=== PATIENT | female | born 1945 | race Caucasian/White ===

== ENCOUNTER 2019-10-30 20:15 | Emergency (ER) | payer MEDICARE, BC ==
[2019-10-30] MEDS ORDERED: Lidocaine 1% 20 ML MDV ONE (20:40)
[2019-10-30] MEDS ORDERED: Bacitracin/Neomycin/Polymyxin B Oint 0.9 GM U/D Packet ONE (20:40)
[2019-10-30] MEDS ORDERED: Diphtheria,Pertussis(Acell),Tetanus Vaccine 0.5 ML SDV IM ONE (21:07)
--- NOTE | 2019-10-30 21:13 | EDM.PDOC ---
ED HPI GENERAL MEDICAL PROBLEM - General Chief Complaint: Laceration Stated Complaint: fall Time Seen by Provider: 10/30/19 21:07 Source of Information: Reports: Patient History Limitations: Reports: No Limitations - History of Present Illness INITIAL COMMENTS - FREE TEXT/NARRATIVE: Patient is a 74-year-old female who presents to the emergency department via private vehicle this evening with a complaint of laceration to face. Patient states that she tripped over the lawnmower in her garage and struck face on furniture. Patient sustained lacerations to upper and lower lip. Patient denies dizziness prior to or loss of consciousness following incident. Patient denies neck pain, shortness of breath, chest pain, headache, blurry vision, nausea or vomiting. Onset: Today, Sudden Duration: Minutes: Location: Reports: Face Quality: Reports: Ache Severity: Mild Improves with: Reports: None Worsens with: Reports: None Context: Reports: Trauma Associated Symptoms: Reports: No Other Symptoms - Related Data Allergies Allergy/AdvReac Type Severity Reaction Status Date / Time moexipril HCl [From Univasc] Allergy Mild Cough Verified 10/30/19 20:31 Home Meds: Home Meds Alendronate Sodium [Alendronate] 70 mg PO ASDIRECTED 04/24/13 [History] Metoprolol Tartrate 25 mg PO DAILY 04/24/13 [History] Brimonidine Tartrate [Brimonidine Tartrate 0.2% Ophth Soln] 1 drop EYEBOTH BID 10/30/19 [History] levETIRAcetam [Keppra] 1,500 mg PO DAILY 10/30/19 [History] Social & Family History - Living Situation & Occupation Living situation: Reports: Occupation: Retired ED ROS GENERAL - Review of Systems Review Of Systems: Comprehensive ROS is negative, except as noted in HPI. Constitutional: Reports: No Symptoms HEENT: Reports: No Symptoms Respiratory: Reports: No Symptoms Cardiovascular: Reports: No Symptoms Endocrine: Reports: No Symptoms GI/Abdominal: Reports: No Symptoms : Reports: No Symptoms Musculoskeletal: Reports: No Symptoms Skin: Reports: Wound (Lacerations to upper and lower lip) Neurological: Reports: No Symptoms Psychiatric: Reports: No Symptoms Hematologic/Lymphatic: Reports: No Symptoms Immunologic: Reports: No Symptoms ED EXAM, SKIN/RASH Exam: See Below Exam Limited By: No Limitations General Appearance: Alert, WD/WN, No Apparent Distress Eye Exam: Bilateral Eye: Normal Inspection Ears: Normal External Exam Nose: Normal Inspection, Normal Mucosa, No Blood Throat/Mouth: Normal Oropharynx, No Airway Compromise, Other (2 Lacerations to upper lip and 2 lacerations to lower lip) Neck: Normal Inspection, Supple, Non-Tender, Full Range of Motion. No: Tender Lateral, Tender Midline Respiratory/Chest: No Respiratory Distress GI/Abdominal: Normal Bowel Sounds, Soft, Non-Tender, Pelvis Stable Back Exam: Normal Inspection Extremities: Normal Inspection Neurological: Alert, Oriented, CN II-XII Intact, Normal Cognition, No M otor/Sensory Deficits Psychiatric: Normal Affect, Normal Mood Skin: Warm, Dry, Normal Color, No Rash, Wound/Incision (Lacerations to lip as described above) ED SKIN PROCEDURES - Laceration/Wound Repair Face Appearance: Superficial Distal NVT: Neuro & Vascular Intact Anesthetic Type: Local Local Anesthesia - Lidocaine (Xylocaine): 1% Plain Local Anesthetic Volume: 5cc Skin Prep: Providone-Iodine (Betadine) Closed with: Sutures Lac/Wound length In cm: 6 Suture Size: 4-0 # of Sutures: 17 Suture Type: Nylon, Interrupted, Simple Tetanus Status Addressed: Yes Complications: No Course - Vital Signs Last Recorded V/S: Last Vital Signs Temp 97.7 F 10/30/19 20:35 Pulse 85 10/30/19 20:35 Resp 18 10/30/19 20:35 BP 187/81 H 10/30/19 20:35 Pulse Ox 95 10/30/19 20:35 - Orders/Labs/Meds Orders: Active Orders 24 hr Category Date Time Status Vaccines to be Administered [RC] PER UNIT ROUTINE Care 10/30/19 21:08 Ordered Diphth,Pertuss(Acell),Tet Vac [Adacel] Med 10/30/19 21:07 Once 0.5 ml IM .ONCE ONE Meds: Medications Discontinued Medications Generic Name Dose Route Start Last Admin Trade Name Sharon PRN Reason Stop Dose Admin Lidocaine HCl Confirm 10/30/19 20:40 Xylocaine 1% Administered 10/30/19 20:41 Dose 20 ml .ROUTE .STK-MED ONE Neomycin/Polymyxin/Bacitracin Confirm 10/30/19 20:40 Triple Antibiotic Oint Administered 10/30/19 20:41 Dose 1 each .ROUTE .STK-MED ONE - Re-Assessments/Exams Free Text/Narrative Re-Assessment/Exam: 10/30/19 21:13 Patient afebrile, vital signs stable, tolerated procedure well. There were 4 individual lacerations totaling 6 cm. 17 sutures are required to approximate wounds. She was given tetanus in the ER. Patient denies jaw pain, neck pain, or head pain. Incident was witnessed by her . Patient will follow-up with PCP for suture removal in 7-10 days Departure - Departure Time of Disposition: 21:14 Disposition: Home, Self-Care 01 Condition: Good Clinical Impression: Facial laceration Qualifiers: Encounter type: initial encounter Qualified Code(s): S01.81XA - Laceration without foreign body of other part of head, initial encounter Lip laceration Qualifiers: Encounter type: initial encounter Qualified Code(s): S01.511A - Laceration without foreign body of lip, initial encounter - Discharge Information Instructions: Sutures, [place], or Adhesive Wound Closure, [id number], Laceration Care, Adult, [id number], Mouth Laceration, [id number] Additional Instructions: Follow-up at [facility] in 7-10 days for suture removal. Return to emergency department sooner if symptoms continue or worsen. Keep area clean and dry. Sepsis Event Note (ED) - Evaluation Sepsis Screening Result: No Definite Risk - Focused Exam Vital Signs: Vital Signs Temp Pulse Resp BP Pulse Ox 10/30/19 20:35 97.7 F 85 18 187/81 H 95 - My Orders Last 24 Hours: My Active Orders 10/30/19 21:07 Diphth,Pertuss(Acell),Tet Vac [Adacel] 0.5 ml IM .ONCE ONE 10/30/19 21:08 Vaccines to be Administered [RC] PER UNIT ROUTINE - Assessment/Plan Last 24 Hours: My Active Orders 10/30/19 21:07 Diphth,Pertuss(Acell),Tet Vac [Adacel] 0.5 ml IM .ONCE ONE 10/30/19 21:08 Vaccines to be Administered [RC] PER UNIT ROUTINE Assessment:: Lip laceration repair Plan: Follow-up with PCP
[2019-10-30] MEDS ORDERED: Bacitracin/Neomycin/Polymyxin B Oint 0.9 GM U/D Packet TOP ONE (22:01)
[2019-10-30] MEDS ORDERED: Lidocaine 1% 20 ML MDV INJECT ONE (22:02)
== END 2019-10-30 21:25 | disposition home or self-care (01) ==
LOC: KA.ED 20:15
DX: S01.511A Laceration without foreign body of lip, initial encounter (principal); Z88.8 Allergy status to other drugs, medicaments and biological substances; Z79.899 Other long term (current) drug therapy; Z23 Encounter for immunization; W01.190A Fall on same level from slipping, tripping and stumbling with subsequent striking against furniture, initial encounter
CPT/HCPCS: 12014; 90471; 90715; 99282; 99283; J2001

== ENCOUNTER 2021-03-26 18:54 | Observation (INO) | payer MEDICARE, BC ==
[2021-03-26] MEDS ORDERED: Aspirin 81 MG Tab.Chew PO ONE (18:59)
[2021-03-26] MEDS ORDERED: Nitroglycerin 2% Oint 1 GM UD Packet TOP ONE (18:59)
--- NOTE | 2021-03-26 19:06 | EDM.PDOC ---
ED HPI GENERAL MEDICAL PROBLEM - General Chief Complaint: Cardiovascular Problem Stated Complaint: CHEST PAIN Time Seen by Provider: 03/26/21 18:58 Source of Information: Reports: Patient History Limitations: Reports: No Limitations - History of Present Illness INITIAL COMMENTS - FREE TEXT/NARRATIVE: 76 YO WF PRESENTS TO ER SUBSTERNAL CHEST PAIN WHICH BEGAN TODAY AROUND 4:30PM. PT REPORTS PAIN WAS SUBSTERNAL WITH SOME RADIATION TO HER BACK WITH ASSOCIATED SHORTNESS OF BREATH, DIAPHORESIS AND MY DIZZINESS. PT RATES HER PAIN AT IT'S WORST 7/10, AND AFTER 1 SL NITRO 3/10. PT DENIES ANY KNOWN CARDIAC HISTORY. 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 PT CURRENTLY IN NO ACUTE DISTRESS. APPEARS COMFORTABLE. Onset: Today Onset Date: 03/26/21 Onset Time: 16:30 Location: Reports: Chest Quality: Reports: Ache Severity: Moderate Improves with: Reports: Medication Worsens with: Reports: None Associated Symptoms: Reports: Chest Pain, Diaphoresis, Shortness of Breath. 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 Middle Chest Pain Score (Numeric/FACES): 3 - Related Data Allergies Allergy/AdvReac Type Severity Reaction Status Date / Time moexipril HCl [From Univasc] Allergy Mild Cough Verified 03/26/21 19:36 Home Meds: Home Meds Alendronate Sodium [Alendronate] 70 mg PO ASDIRECTED 04/24/13 [History] Metoprolol Tartrate 25 mg PO DAILY 04/24/13 [History] Brimonidine Tartrate [Brimonidine Tartrate 0.2% Ophth Soln] 1 drop EYEBOTH BID 10/30/19 [History] levETIRAcetam [Keppra] 1,500 mg PO DAILY 10/30/19 [History] Past Medical History HEENT History: Reports: Glaucoma Cardiovascular History: Reports: Hypertension Neurological History: Reports: Seizure, TIA, Other (See Below) Other Neuro History: Brain tumor removed in 2012. 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 - Past Surgical History HEENT Surgical History: Reports: None Cardiovascular Surgical History: Reports: None Neurological Surgical History: Reports: None Social & Family History - Living Situation & Occupation Living situation: Reports: Occupation: Retired ED ROS GENERAL - Review of Systems Review Of Systems: See Below Constitutional: Reports: No Symptoms HEENT: Reports: No Symptoms Respiratory: Reports: Shortness of Breath Cardiovascular: Reports: Chest Pain, Blood Pressure Problem, Lightheadedness. Denies: Syncope GI/Abdominal: Reports: No Symptoms : Reports: No Symptoms Musculoskeletal: Reports: No Symptoms Skin: Reports: No Symptoms Neurological: Reports: No Symptoms Psychiatric: Reports: No Symptoms Hematologic/Lymphatic: Reports: No Symptoms Immunologic: Reports: No Symptoms ED EXAM, GENERAL - Physical Exam Exam: See Below Exam Limited By: No Limitations General Appearance: Alert, WD/WN, No Apparent Distress Head: Atraumatic, Normocephalic Neck: Normal Inspection, Supple, Non-Tender, Full Range of Motion Respiratory/Chest: No Respiratory Distress, Lungs Clear, Normal Breath Sounds, No Accessory Muscle Use, Chest Non-Tender Cardiovascular: Normal Peripheral Pulses, Regular Rate, Rhythm, No Edema, No Gallop, No JVD, No Murmur, No Rub GI/Abdominal: Normal Bowel Sounds, Soft, Non-Tender, No Organomegaly, No Distention, No Abnormal Bruit, No Mass Back Exam: Normal Inspection, Full Range of Motion, NT Extremities: Normal Inspection, Normal Range of Motion, Non-Tender, Normal Capillary Refill, No Pedal Edema Neurological: Alert, Oriented, CN II-XII Intact, Normal Cognition, Normal Gait, Normal Reflexes, No Motor/Sensory Deficits Psychiatric: Normal Affect, Normal Mood Skin Exam: Warm, Dry, Intact, Normal Color, No Rash Lymphatic: No Adenopathy #1 Interpretation EKG Date: 03/26/21 Time: 19:37 Rhythm: NSR Rate (Beats/Min): 56 [place]: Normal P-Wave: Present QRS: Normal ST-T: Normal QT: Normal Comparison: NA - No Prior EKG Course - Vital Signs Last Recorded V/S: Last Vital Signs Temp 97.1 F 03/26/21 19:00 Pulse 56 L 03/26/21 20:00 Resp 18 03/26/21 20:00 BP 173/78 H 03/26/21 20:00 Pulse Ox 96 03/26/21 20:00 - Orders/Labs/Meds Orders: Active Orders 24 hr Category Date Time Status Cardiac Monitoring [RC] . DIRECTED Care 03/26/21 18:57 Active Peripheral IV Care [RC] . DIRECTED Care 03/26/21 18:57 Active CORONAVIRUS COVID-19 RAPID [MOLEC] Stat Lab 03/26/21 20:09 Ordered EKG 12 Lead [EK] Stat Ther 03/26/21 18:57 Ordered Labs: Laboratory Tests 03/26/21 03/26/21 Range/Units 19:40 19:40 WBC 11.76 H (5.00-10.00) 10^3/uL RBC 4.67 (3.80-5.50) 10^6/uL Hgb 14.2 (12.0-16.0) g/dL Hct 41.4 (37.0-47.0) % MCV 88.7 (82.0-92.0) fL MCH 30.4 (27.0-31.0) pg MCHC 34.3 (32.0-36.0) g/dL RDW 11.5 (11.5-14.5) % Plt Count 259 (150-400) 10^3/uL MPV 9.8 (7.4-10.4) fL Immature Gran % (Auto) 0.2 (0.0-5.0) % Neut % (Auto) 78.1 H (50.0-70.0) % Lymph % (Auto) 9.9 L (20.0-40.0) % [place] % (Auto) 9.8 H (2.0-8.0) % Eos % (Auto) 1.6 (1.0-3.0) % Baso % (Auto) 0.4 (0.0-1.0) % Neut # (Auto) 9.19 H (2.50-7.00) 10^3/uL Lymph # (Auto) 1.16 (1.00-4.00) 10^3/uL [place] # (Auto) 1.15 H (0.10-0.80) 10^3/uL Eos # (Auto) 0.19 (0.10-0.30) 10^3/uL Baso # (Auto) 0.05 (0.00-0.10) 10^3/uL Immature Gran # (Auto) 0.02 (0.00-0.50) 10^3/uL Sodium 141 (136-145) mmol/L Potassium 4.0 (3.5-5.1) mmol/L Chloride 103 (98-107) mmol/L Carbon Dioxide 26.7 (21.0-32.0) mmol/L Anion Gap 15.3 H (5-15) mmol/L BUN 28 H (7-18) mg/dL Creatinine 0.77 (0.51-1.17) mg/dL Est Cr Clr Drug Dosing 52.00 mL/min Estimated GFR (MDRD) > 60 mL/min Glucose 112 (70-140) mg/dL Calcium 9.6 (8.7-10.3) mg/dL Total Bilirubin 1.3 H (0.2-1.0) mg/dL AST 148 H (15-37) U/L ALT 75 H (14-63) U/L Alkaline Phosphatase 87 (46-116) U/L Troponin I High Sens 4.100 (0-51.000) pg/mL Total Protein 6.8 (6.4-8.2) g/dL Albumin 3.72 (3.40-5.00) g/dL Meds: Medications Discontinued Medications Generic Name Dose Route Start Last Admin Trade Name Freq PRN Reason Stop Dose Admin Aspirin 324 mg 03/26/21 18:59 03/26/21 19:13 Aspirin 81 Mg Tab.Chew PO 03/26/21 19:00 324 mg ONETIME ONE Administration Nitroglycerin 1 gm 03/26/21 18:59 03/26/21 19:29 Nitroglycerin 2% Oint 1 Gm Ud Packet TOP 03/26/21 19:00 1 gm ONETIME ONE Administration - Radiology Interpretation Free Text/Narrative:: CXR- NAD Departure - Departure Time of Disposition: 21:10 Disposition: Refer to Observation Condition: Fair Clinical Impression: Chest pain Qualifiers: Chest pain type: unspecified Qualified Code(s): R07.9 - Chest pain, unspecified Hypertension Qualifiers: Hypertension type: primary hypertension Qualified Code(s): I10 - Essential (primary) hypertension Referrals: Gianna Patel [facility]HE[facility] [Primary Care Provider] - Forms: ED Department Discharge Sepsis Event Note (ED) - Focused Exam Vital Signs: Vital Signs Temp Pulse Resp BP Pulse Ox 03/26/21 20:00 56 L 18 173/78 H 96 03/26/21 19:45 56 L 20 157/78 H 96 03/26/21 19:30 55 L 18 156/75 H 96 03/26/21 19:15 60 18 138/75 94 L 03/26/21 19:00 97.1 F 58 L 16 148/87 H 98 - My Orders Last 24 Hours: My Active Orders 03/26/21 18:57 Cardiac Monitoring [RC] . DIRECTED Peripheral IV Care [RC] . DIRECTED EKG 12 Lead [EK] Stat 03/26/21 20:09 CORONAVIRUS COVID-19 RAPID [MOLEC] Stat - Assessment/Plan Last 24 Hours: My Active Orders 03/26/21 18:57 Cardiac Monitoring [RC] . DIRECTED Peripheral IV Care [RC] . DIRECTED EKG 12 Lead [EK] Stat 03/26/21 20:09 CORONAVIRUS COVID-19 RAPID [MOLEC] Stat Assessment:: 1. CHEST PAIN 2. ACCELERATED HTN Plan: 1. ADMIT TO MEDICINE- DR TAM ACCEPTED @2019 2. ALL ORDERS PER MEDICINE
--- NOTE | 2021-03-26 20:10 | CR ---
[id number] RAD/RAD Chest PA or AP 1V EXAM: RAD Chest PA or AP 1V INDICATION: PAIN COMPARISON: None. DISCUSSION: Cardiomediastinal silhouette is normal in size and contour. No infiltrate, effusion, pneumothorax, or edema. Pulmonary hyperinflation. IMPRESSION: No acute cardiopulmonary abnormality. Fredis Cartagena DO 03/26/[id number] Thank you for allowing us to participate in the care of your patient.
[2021-03-26 20:12] LABS: ANION GAP 15.3 mmol/L (5-15); CHLORIDE,CL 103 mmol/L (98-107); SODIUM,NA 141 mmol/L (136-145)
[2021-03-26] MEDS ORDERED: hydrALAZINE 20 MG/ML SDV IVPUSH PRN (22:35)
[2021-03-26] MEDS ORDERED: Alum Hydrox/Mag Hydrox/Simeth 30 ML, Lidocaine 2% 15 ML PO ONE ×2 (23:27)
[2021-03-26] MEDS ORDERED: Ondansetron 4 MG Tab.DIS PO PRN (23:29)
[2021-03-27] MEDS ORDERED: levETIRAcetam 500 MG Tab PO SCH (09:00)
--- NOTE | 2021-03-27 09:46 | PCM.HP.2 ---
H&P History of Present Illness - General Date of Service: 03/27/21 Admit Problem/Dx: Admission Diagnosis/Problem Admission Diagnosis/Problem Chest pain Middle Chest Pain Score (Numeric/FACES): 3 Upper Abdomen Pain Score (Numeric/FACES): 0 - Related Data Allergies/Adverse Reactions: Allergies Allergy/AdvReac Type Severity Reaction Status Date / Time moexipril HCl [From Univasc] Allergy Mild Cough Verified 03/26/21 19:36 Home Medications: Home Meds Alendronate Sodium [Alendronate] 70 mg PO ASDIRECTED 04/24/13 [History] Brimonidine Tartrate [Brimonidine Tartrate 0.2% Ophth Soln] 1 drop EYEBOTH BID 10/30/19 [History] levETIRAcetam [Keppra] 500 mg PO TID 10/30/19 [History] Aspirin [Aspirin EC] 325 mg PO BEDTIME 03/26/21 [History] Carboxymethylcellulose Sodium [Refresh Tears 0.5%] 1 drop OP ASDIRECTED PRN 03/26/21 [History] Latanoprost/Pf [Latanoprost 0.005% Eye Drop] 1 drop OP BEDTIME 03/26/21 [History] Metoprolol Succinate [Toprol XL] 25 mg PO DAILY 03/26/21 [History] Multivitamin with Minerals [Multiple Vitamin] 1 tab PO DAILY 03/26/21 [History] Past Medical History HEENT History: Reports: Glaucoma Cardiovascular History: Reports: Hypertension Respiratory History: Reports: None Gastrointestinal History: Reports: None Genitourinary History: Reports: None 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 Pt had breakthrough seizure in 2017 which required her to increase keepra dosage and have radiation treatment due to growth of benign tumor. Had a stroke over 20 years ago Psychiatric History: Reports: None Endocrine/Metabolic History: Reports: None Hematologic History: Reports: None Immunologic History: Reports: None Oncologic (Cancer) History: Reports: None Dermatologic History: Reports: Eczema - Infectious Disease History Infectious Disease History: Reports: Chicken Pox, Measles, Mumps - Past Surgical History HEENT Surgical History: Reports: None Cardiovascular Surgical History: Reports: None GI Surgical History: Reports: Appendectomy Neurological Surgical History: Reports: None Other Musculoskeletal Surgeries/Procedures:: back surgery. left knee replacement Social & Family History - Tobacco Use Tobacco Use Status *Q: Former Tobacco User Used Tobacco, but Quit: Yes Month/Year Tobacco Last Used: 2000 - Caffeine Use Caffeine Use: Reports: Coffee - Recreational Drug Use Recreational Drug Use: No - Living Situation & Occupation Living situation: Reports: Occupation: Retired H&P Review of Systems - Review of Systems: Review Of Systems: See Below General: Reports: No Symptoms. Denies: Diaphoresis HEENT: Reports: Headaches (last evening, now resolved) Pulmonary: Reports: No Symptoms. Denies: Shortness of Breath, Wheezing, Cough Cardiovascular: Reports: Chest Pain (yesterday afternoon and evening; now resolved), Blood Pressure Problem (elevated in ER last evening, normalized this morning). Denies: Dyspnea on Exertion, Edema, Lightheadedness Gastrointestinal: Reports: Constipation, Other (heartburn; denies this am - increased symptoms for last week). Denies: Nausea, Vomiting Genitourinary: Reports: No Symptoms Musculoskeletal: Reports: No Symptoms Skin: Reports: No Symptoms Psychiatric: Reports: No Symptoms Neurological: Reports: No Symptoms Hematologic/Lymphatic: Reports: No Symptoms Immunologic: Reports: No Symptoms Exam - Exam Exam: See Below - Vital Signs Vital Signs: Last Vital Signs Temp 98.1 F 03/27/21 06:52 Pulse 65 03/27/21 06:52 Resp 16 03/27/21 06:52 BP 124/59 L 03/27/21 06:52 Pulse Ox 95 03/27/21 06:52 Weight: 145 lb - Exam Quality Assessment: DVT Prophylaxis (home ASA). No: Supplemental Oxygen General: Alert, Oriented, Cooperative. No: Mild Distress HEENT: Conjunctiva Clear, EACs Clear, Mucosa Moist & [place] Neck: Supple, Trachea Midline, +2 Carotid Pulse wo Bruit Lungs: Clear to Auscultation, Normal Respiratory Effort. No: Decreased Breath Sounds, Crackles, Rales, Rhonchi, Wheezing Cardiovascular: Regular Rate, Regular Rhythm. No: Systolic Murmur GI/Abdominal Exam: Normal Bowel Sounds, Soft, No Distention, Tender (mild generalized tenderness). No: Guarding, Rebound (Female) Exam: Deferred Rectal (Female) Exam: Deferred Back Exam: Normal Inspection, Full Range of Motion Extremities: Normal Inspection, Normal Range of Motion, Non-Tender, No Pedal Edema, Normal Capillary Refill Peripheral Pulses: 2+: Dorsalis Pedis (L), Dorsalis Pedis (R) Skin: Warm, Dry, Intact Neuro Extensive - Mental Status: Alert, Oriented x3, Normal Mood/Affect, Normal Cognition, Memory Intact Psychiatric: Alert, Normal Affect, Normal Mood - Patient Data Lab Results Last 24 hrs: Laboratory Results - last 24 hr 03/26/21 03/26/21 03/26/21 Range/Units 19:40 19:40 20:09 WBC 11.76 H (5.00-10.00) 10^3/uL RBC 4.67 (3.80-5.50) 10^6/uL Hgb 14.2 (12.0-16.0) g/dL Hct 41.4 (37.0-47.0) % MCV 88.7 (82.0-92.0) fL MCH 30.4 (27.0-31.0) pg MCHC 34.3 (32.0-36.0) g/dL RDW 11.5 (11.5-14.5) % Plt Count 259 (150-400) 10^3/uL MPV 9.8 (7.4-10.4) fL Immature Gran % (Auto) 0.2 (0.0-5.0) % Neut % (Auto) 78.1 H (50.0-70.0) % Lymph % (Auto) 9.9 L (20.0-40.0) % [place] % (Auto) 9.8 H (2.0-8.0) % Eos % (Auto) 1.6 (1.0-3.0) % Baso % (Auto) 0.4 (0.0-1.0) % Neut # (Auto) 9.19 H (2.50-7.00) 10^3/uL Lymph # (Auto) 1.16 (1.00-4.00) 10^3/uL [place] # (Auto) 1.15 H (0.10-0.80) 10^3/uL Eos # (Auto) 0.19 (0.10-0.30) 10^3/uL Baso # (Auto) 0.05 (0.00-0.10) 10^3/uL Immature Gran # (Auto) 0.02 (0.00-0.50) 10^3/uL Sodium 141 (136-145) mmol/L Potassium 4.0 (3.5-5.1) mmol/L Chloride 103 (98-107) mmol/L Carbon Dioxide 26.7 (21.0-32.0) mmol/L Anion Gap 15.3 H (5-15) mmol/L BUN 28 H (7-18) mg/dL Creatinine 0.77 (0.51-1.17) mg/dL Est Cr Clr Drug Dosing 52.00 mL/min Estimated GFR (MDRD) > 60 mL/min Glucose 112 (70-140) mg/dL Calcium 9.6 (8.7-10.3) mg/dL Total Bilirubin 1.3 H (0.2-1.0) mg/dL AST 148 H (15-37) U/L ALT 75 H (14-63) U/L Alkaline Phosphatase 87 (46-116) U/L Troponin I High Sens 4.100 (0-51.000) pg/mL Total Protein 6.8 (6.4-8.2) g/dL Albumin 3.72 (3.40-5.00) g/dL SARS CoV-2 RNA Rapid ENID Negative (NEGATIVE) 03/27/21 Range/Units 00:00 WBC (5.00-10.00) 10^3/uL RBC (3.80-5.50) 10^6/uL Hgb (12.0-16.0) g/dL Hct (37.0-47.0) % MCV (82.0-92.0) fL MCH (27.0-31.0) pg MCHC (32.0-36.0) g/dL RDW (11.5-14.5) % Plt Count (150-400) 10^3/uL MPV (7.4-10.4) fL Immature Gran % (Auto) (0.0-5.0) % Neut % (Auto) (50.0-70.0) % Lymph % (Auto) (20.0-40.0) % [place] % (Auto) (2.0-8.0) % Eos % (Auto) (1.0-3.0) % Baso % (Auto) (0.0-1.0) % Neut # (Auto) (2.50-7.00) 10^3/uL Lymph # (Auto) (1.00-4.00) 10^3/uL [place] # (Auto) (0.10-0.80) 10^3/uL Eos # (Auto) (0.10-0.30) 10^3/uL Baso # (Auto) (0.00-0.10) 10^3/uL Immature Gran # (Auto) (0.00-0.50) 10^3/uL Sodium (136-145) mmol/L Potassium (3.5-5.1) mmol/L Chloride (98-107) mmol/L Carbon Dioxide (21.0-32.0) mmol/L Anion Gap (5-15) mmol/L BUN (7-18) mg/dL Creatinine (0.51-1.17) mg/dL Est Cr Clr Drug Dosing mL/min Estimated GFR (MDRD) mL/min Glucose (70-140) mg/dL Calcium (8.7-10.3) mg/dL Total Bilirubin (0.2-1.0) mg/dL AST (15-37) U/L ALT (14-63) U/L Alkaline Phosphatase (46-116) U/L Troponin I High Sens 5.400 (0-51.000) pg/mL Total Protein (6.4-8.2) g/dL Albumin (3.40-5.00) g/dL SARS CoV-2 RNA Rapid ENID (NEGATIVE) Result Diagrams: 03/26/21 19:40 03/26/21 19:40 Sepsis Event Note - Evaluation Sepsis Screening Result: No Definite Risk - Focused Exam Vital Signs: Vital Signs Temp Pulse Resp BP BP Pulse Ox 03/27/21 06:52 98.1 F 65 16 124/59 L 95 03/27/21 02:32 97.3 F 67 20 150/56 H 95 03/27/21 00:18 58 L 149/67 H 03/26/21 23:20 96.7 F L 64 20 177/70 H 96 Problem List Initiated/Reviewed/Updated: Yes Orders Last 24hrs: Active Orders 24 hr Category Date Time Status Patient Status [ADT] Routine ADT 03/26/21 21:15 Active Cardiac Monitoring [RC] 07,11,15,19,23,03 Care 03/26/21 18:57 Active Cardiac Monitoring [RC] CONTINUOUS Care 03/26/21 21:15 Active Oxygen Therapy [RC] PRN Care 03/26/21 21:15 Active Peripheral IV Care [RC] . DIRECTED Care 03/26/21 18:57 Active Up ad Bernice [RC] ASDIRECTED Care 03/26/21 21:15 Active VTE/DVT Education [RC] PER UNIT ROUTINE Care 03/26/21 21:15 Active Vital Signs [RC] Q4H Care 03/26/21 21:15 Active Heart Healthy Diet [DIET] Diet 03/27/21 Breakfast Active Ondansetron [Zofran ODT] Med 03/26/21 23:29 Active 4 mg PO Q6H PRN hydrALAZINE [Apresoline] Med 03/26/21 22:35 Active 10 mg IVPUSH Q6H PRN levETIRAcetam [Keppra] Med 03/27/21 09:00 Active 500 mg PO TID Resuscitation Status Routine Resus Stat 03/26/21 21:15 Ordered EKG 12 Lead [EK] Stat Ther 03/26/21 18:57 Stop Req Medication Orders Hydralazine HCl (Hydralazine 20 Mg/Ml Sdv) 10 mg IVPUSH Q6H PRN PRN Reason: high blood pressure Last Admin: 03/26/21 23:44 Dose: 10 mg Documented by: CYNDIE Levetiracetam (Levetiracetam 500 Mg Tab) 500 mg PO TID JACKIE Last Admin: 03/27/21 08:35 Dose: 500 mg Documented by: ALLEGRA Ondansetron HCl (Ondansetron 4 Mg Tab.Dis) 4 mg PO Q6H PRN PRN Reason: Nausea/Vomiting Last Admin: 03/26/21 23:44 Dose: 4 mg Documented by: CYNDIE Assessment/Plan Comment:: HPI summary: Emperatriz is a 76yF patient who experienced onset of substernal chest pain with radiation to the back, shortness of breath, diaphoresis and dizziness around 1630 on 03/26/21. Patient has no known cardiac history. After experiencing symptoms for about 3 hours, patient notified her daughter who called 911. Patient was transported to [facility] ER for evaluation and treatment as indicated. ED course: Chest pain 11/10 upon arrival to ER - nitropaste 2% applied and patient was given 324mg ASA. EKG indicated NSR with no ST wave abnormalities. CXR was negative for acute process. Initial troponin was negative at 4.100. WBC 11.76, Hgb 14.2, Plt 259. Na 141, K 4.0, BUN 28, creatinine 0.77, AST 148, ALT 75. BP elevated in ER: 173/78 - IV hydralazine x 1 dose given. Patient admitted to observation status per Dr Amanda, wildlife biostation research ecologist [place] provider. Hospital course: 03/27/21: Patient denies chest pain symptoms and is requesting to go home upon rounds this am. She reports an intermittent "slight twinge" to her left lower chest, no chest pressure symptoms as she was reporting upon arrival to ER. Patient reports she is in the process of moving to a new house and has been under a considerable amount of stress recently. She reports she had an control equipment electrician at her new house yesterday and had a full house [facility] She has also been eating more salty snacks in the evening and has had increased heartburn symptoms for the past week. Patient reports feeling slightly flushed this morning and has a slight headache. Nitro paste was removed last night around 0. Patient was given a GI cocktail for epigastric pain with radiation to the back last night with relief. Repeat troponin this am negative, 5.400. Hemodynamically stable, BP normalized. Exam overall negative. Suspect reported episode of chest pain likely rather multifactorial in etiology due to increased stress, increased salty snack intake which likely contributed to increased blood pressure, increased GERD symptoms for the past week as well as anxiety related to aforementioned symptoms. Hospitalization problems and plan: # Substernal chest pain # GERD - GI cocktail last night with improvement in symptoms - takes pepcid PRN at home with increased use over the past week - Repeat troponin 5.400 Chronic, stable conditions: # HTN - continue metoprolol 25mg PO daily # Hx of cerebral artery occlusion with cerebral infarction (10 years ago) - continue ASA 325mg PO daily # s/p craniotomy secondary to a brain tumor in 2012 - additional hx of radiation tx for benign brain tumor # Hx of seizures with breakthrough in 2017 - continue keppra 500mg PO TID # HLD - crestor 5mg PO daily (patient reportedly not taking) # Vitamin D deficiency # Osteoporosis - on fosamax 70mg PO once weekly, calcium/vitamin D 600/400. # Open angle glaucoma - continue timolol 1 gtt to both eyes BID, alphagan 1 gtt to both eyes BID, latanoprost 1 gtt to both eyes at HS daily # Neoplasm of the skin Hospitalization details: # FEN: Oral fluids, electrolytes stable, heart healthy diet # PPX: Continue home ASA 325mg PO daily # Code status: FULL CODE # Emergency contact: , Ryan [phone], Daughter Nancy [phone] # Disposition: Will plan to discharge patient home today due to resolution of chest pain symptoms and negative troponin x 2.
--- NOTE | 2021-03-27 10:28 | PCM.DCSUM1 ---
Discharge Summary - Hospital Course Free Text/Narrative:: Date of admission: 03/26/21 Date of discharge: 03/27/21 Admission diagnoses: Discharge diagnoses: Hospital course: Discharge and follow-up recommendations: - Discharge to - New medications at discharge: - Follow-up at [facility] on with at - Overdue for mammogram, colonoscopy, consider echocardiogram, stress test, low dose lung CT for lung CA screening HPI summary: Emperatriz is a 76yF patient who experienced onset of substernal chest pain with radiation to the back, shortness of breath, diaphoresis and dizziness around 1630 on 03/26/21. Patient has no known cardiac history. After experiencing symptoms for about 3 hours, patient notified her daughter who called 911. Patient was transported to [facility] ER for evaluation and treatment as indicated. ED course: Chest pain 11/10 upon arrival to ER - nitropaste 2% applied and patient was given 324mg ASA. EKG indicated NSR with no ST wave abnormalities. CXR was negative for acute process. Initial troponin was negative at 4.100. WBC 11.76, Hgb 14.2, Plt 259. Na 141, K 4.0, BUN 28, creatinine 0.77, AST 148, ALT 75. BP elevated in ER: 173/78 - IV hydralazine x 1 dose given. Patient admitted to observation status per Dr Amanda, predator control trapper [place] provider. Hospital course: 03/27/21: Patient denies chest pain symptoms and is requesting to go home upon rounds this am. She reports an intermittent "slight twinge" to her left lower chest, no chest pressure symptoms as she was reporting upon arrival to ER. Patient reports she is in the process of moving to a new house and has been under a considerable amount of stress recently. She reports she had an control electrician at her new house yesterday and had a full house of people planning to come for giving. She has also been eating more salty snacks in the evening and has had increased heartburn symptoms for the past week. Patient reports feeling slightly flushed this morning and has a slight headache. Nitro paste was removed last night around 2230. Patient was given a GI cocktail for epigastric pain with radiation to the back last night with relief. Repeat tropo mc this am negative, 5.400. Hemodynamically stable, BP normalized. Exam overall negative. Suspect reported episode of chest pain likely rather multifactorial in etiology due to increased stress, increased salty snack intake which likely contributed to increased blood pressure, increased GERD symptoms for the past week as well as anxiety related to aforementioned symptoms. Hospitalization problems and plan: # Substernal chest pain # GERD - GI cocktail last night with improvement in symptoms - takes pepcid PRN at home with increased use over the past week - Repeat troponin 5.400 Chronic, stable conditions: # HTN - continue metoprolol 25mg PO daily # Hx of cerebral artery occlusion with cerebral infarction (10 years ago) - continue ASA 325mg PO daily # s/p craniotomy secondary to a brain tumor in 2012 - additional hx of radiation tx for benign brain tumor # Hx of seizures with breakthrough in 2017 - continue keppra 500mg PO TID # HLD - crestor 5mg PO daily (patient reportedly not taking) # Vitamin D deficiency # Osteoporosis - on fosamax 70mg PO once weekly, calcium/vitamin D 600/400. # Open angle glaucoma - continue timolol 1 gtt to both eyes BID, alphagan 1 gtt to both eyes BID, latanoprost 1 gtt to both eyes at HS daily # Neoplasm of the skin Hospitalization details: # FEN: Oral fluids, electrolytes stable, heart healthy diet # PPX: Continue home ASA 325mg PO daily # Code status: FULL CODE # Emergency contact: , Ryan [phone], Daughter Nancy [phone] # Disposition: Will plan to discharge patient home today due to resolution of chest pain symptoms and negative troponin x 2. - Discharge Data Discharge Date: 03/27/21 Discharge Disposition: Home, Self-Care 01 Condition: Good - Referral to Home Health Primary Care Physician: Gianna Patel NP - Patient Instructions Diet: Usual Diet as Tolerated Diet, Other: Avoid eating salty foods in the evening to reduce risk of heartburn symptom Driving: Do Not Drive Showering/Bathing: May Shower - Discharge Plan *PRESCRIPTION DRUG MONITORING PROGRAM REVIEWED*: Not Applicable *COPY OF PRESCRIPTION DRUG MONITORING REPORT IN PATIENT YAHIR: Not Applicable Home Medications: Home Meds Alendronate Sodium [Alendronate] 70 mg PO ASDIRECTED 04/24/13 [History] Brimonidine Tartrate [Brimonidine Tartrate 0.2% Ophth Soln] 1 drop EYEBOTH BID 10/30/19 [History] levETIRAcetam [Keppra] 500 mg PO TID 10/30/19 [History] Aspirin [Aspirin EC] 325 mg PO BEDTIME 03/26/21 [History] Carboxymethylcellulose Sodium [Refresh Tears 0.5%] 1 drop OP ASDIRECTED PRN 03/26/21 [History] Latanoprost/Pf [Latanoprost 0.005% Eye Drop] 1 drop OP BEDTIME 03/26/21 [History] Metoprolol Succinate [Toprol XL] 25 mg PO DAILY 03/26/21 [History] Multivitamin with Minerals [Multiple Vitamin] 1 tab PO DAILY 03/26/21 [History] Oxygen Therapy Mode: Room Air Referrals: Gianna Patel DIRECTOR HEMATOLOGY [Primary Care Provider] - 04/01/21 1:00 pm (Follow-up with Gianna Patel APRN DETACHER at [facility] on 04/01/21 at 1:00) - Discharge Summary/Plan Comment DC Time >30 min.: Yes Total # of Minutes for Discharge Time: 35 - Patient Data Vitals - Most Recent: Last Vital Signs Temp 98.1 F 03/27/21 06:52 Pulse 65 03/27/21 06:52 Resp 16 03/27/21 06:52 BP 124/59 L 03/27/21 06:52 Pulse Ox 95 03/27/21 06:52 Weight - Most Recent: 145 lb I&O - Last 24 hours: Intake & Output 03/26/21 03/27/21 03/27/21 22:59 06:59 14:59 Intake Total 100 Output Total 500 300 Balance -500 -200 Lab Results - Last 24 hrs: Laboratory Results - last 24 hr 03/26/21 03/26/21 03/26/21 Range/Units 19:40 19:40 20:09 WBC 11.76 H (5.00-10.00) 10^3/uL RBC 4.67 (3.80-5.50) 10^6/uL Hgb 14.2 (12.0-16.0) g/dL Hct 41.4 (37.0-47.0) % MCV 88.7 (82.0-92.0) fL MCH 30.4 (27.0-31.0) pg MCHC 34.3 (32.0-36.0) g/dL RDW 11.5 (11.5-14.5) % Plt Count 259 (150-400) 10^3/uL MPV 9.8 (7.4-10.4) fL Immature Gran % (Auto) 0.2 (0.0-5.0) % Neut % (Auto) 78.1 H (50.0-70.0) % Lymph % (Auto) 9.9 L (20.0-40.0) % [place] % (Auto) 9.8 H (2.0-8.0) % Eos % (Auto) 1.6 (1.0-3.0) % Baso % (Auto) 0.4 (0.0-1.0) % Neut # (Auto) 9.19 H (2.50-7.00) 10^3/uL Lymph # (Auto) 1.16 (1.00-4.00) 10^3/uL [place] # (Auto) 1.15 H (0.10-0.80) 10^3/uL Eos # (Auto) 0.19 (0.10-0.30) 10^3/uL Baso # (Auto) 0.05 (0.00-0.10) 10^3/uL Immature Gran # (Auto) 0.02 (0.00-0.50) 10^3/uL Sodium 141 (136-145) mmol/L Potassium 4.0 (3.5-5.1) mmol/L Chloride 103 (98-107) mmol/L Carbon Dioxide 26.7 (21.0-32.0) mmol/L Anion Gap 15.3 H (5-15) mmol/L BUN 28 H (7-18) mg/dL Creatinine 0.77 (0.51-1.17) mg/dL Est Cr Clr Drug Dosing 52.00 mL/min Estimated GFR (MDRD) > 60 mL/min Glucose 112 (70-140) mg/dL Calcium 9.6 (8.7-10.3) mg/dL Total Bilirubin 1.3 H (0.2-1.0) mg/dL AST 148 H (15-37) U/L ALT 75 H (14-63) U/L Alkaline Phosphatase 87 (46-116) U/L Troponin I High Sens 4.100 (0-51.000) pg/mL Total Protein 6.8 (6.4-8.2) g/dL Albumin 3.72 (3.40-5.00) g/dL SARS CoV-2 RNA Rapid ENID Negative (NEGATIVE) 03/27/21 Range/Units 00:00 WBC (5.00-10.00) 10^3/uL RBC (3.80-5.50) 10^6/uL Hgb (12.0-16.0) g/dL Hct (37.0-47.0) % MCV (82.0-92.0) fL MCH (27.0-31.0) pg MCHC (32.0-36.0) g/dL RDW (11.5-14.5) % Plt Count (150-400) 10^3/uL MPV (7.4-10.4) fL Immature Gran % (Auto) (0.0-5.0) % Neut % (Auto) (50.0-70.0) % Lymph % (Auto) (20.0-40.0) % [place] % (Auto) (2.0-8.0) % Eos % (Auto) (1.0-3.0) % Baso % (Auto) (0.0-1.0) % Neut # (Auto) (2.50-7.00) 10^3/uL Lymph # (Auto) (1.00-4.00) 10^3/uL [place] # (Auto) (0.10-0.80) 10^3/uL Eos # (Auto) (0.10-0.30) 10^3/uL Baso # (Auto) (0.00-0.10) 10^3/uL Immature Gran # (Auto) (0.00-0.50) 10^3/uL Sodium (136-145) mmol/L Potassium (3.5-5.1) mmol/L Chloride (98-107) mmol/L Carbon Dioxide (21.0-32.0) mmol/L Anion Gap (5-15) mmol/L BUN (7-18) mg/dL Creatinine (0.51-1.17) mg/dL Est Cr Clr Drug Dosing mL/min Estimated GFR (MDRD) mL/min Glucose (70-140) mg/dL Calcium (8.7-10.3) mg/dL Total Bilirubin (0.2-1.0) mg/dL AST (15-37) U/L ALT (14-63) U/L Alkaline Phosphatase (46-116) U/L Troponin I High Sens 5.400 (0-51.000) pg/mL Total Protein (6.4-8.2) g/dL Albumin (3.40-5.00) g/dL SARS CoV-2 RNA Rapid ENID (NEGATIVE) Med Orders - Current: Current Medications Hydralazine HCl (Hydralazine 20 Mg/Ml Sdv) 10 mg IVPUSH Q6H PRN PRN Reason: high blood pressure Last Admin: 03/26/21 23:44 Dose: 10 mg Documented by: Levetiracetam (Levetiracetam 500 Mg Tab) 500 mg PO TID JACKIE Last Admin: 03/27/21 08:35 Dose: 500 mg Documented by: Ondansetron HCl (Ondansetron 4 Mg Tab.Dis) 4 mg PO Q6H PRN PRN Reason: Nausea/Vomiting Last Admin: 03/26/21 23:44 Dose: 4 mg Documented by: Discontinued Medications Aspirin (Aspirin 81 Mg Tab.Chew) 324 mg PO ONETIME ONE Stop: 03/26/21 19:00 Last Admin: 03/26/21 19:13 Dose: 324 mg Documented by: Al Hydroxide/Mg Hydroxide 30 (ml/ Lidocaine HCl 15 ml) 0 ml PO ONETIME ONE Stop: 03/26/21 23:28 Last Admin: 03/26/21 23:44 Dose: 45 ml Documented by: Nitroglycerin (Nitroglycerin 2% Oint 1 Gm Ud Packet) 1 gm TOP ONETIME ONE Stop: 03/26/21 19:00 Last Admin: 03/26/21 19:29 Dose: 1 gm Documented by:
== END 2021-03-27 12:15 | disposition home or self-care (01) ==
LOC: KA.ED 18:54 → KA.MS 21:14 → UNDOADMOB 22:25
PROVIDERS: ADMIT Physician Assistant Medical; ATTEND Student in an Organized Health Care Education/Training Program
DX: R07.2 Precordial pain (principal); R42 Dizziness and giddiness; K21.9 Gastro-esophageal reflux disease without esophagitis; I10 Essential (primary) hypertension; R56.9 Unspecified convulsions; E78.5 Hyperlipidemia, unspecified; E55.9 Vitamin D deficiency, unspecified; M81.0 Age-related osteoporosis without current pathological fracture; H40.10X0 Unspecified open-angle glaucoma, stage unspecified; Z20.822 Contact with and (suspected) exposure to COVID-19; Z79.899 Other long term (current) drug therapy; Z88.8 Allergy status to other drugs, medicaments and biological substances; Z86.73 Personal history of transient ischemic attack (TIA), and cerebral infarction without residual deficits
CPT/HCPCS: 36415; 71045; 80053; 84484; 85025; 96374; 99285; A9270; G0378; J0360; U0002; 93010; 99284

== ENCOUNTER 2024-11-04 22:53 | Emergency (ER) | payer MEDICARE, BC ==
[2024-11-04] MEDS ORDERED: Sodium Chloride 0.9% 10 ML Syringe FLUSH PRN (23:09)
[2024-11-04 23:22] LABS: BASOPHILS ABSOLUTE AUTO 0.05 10^3/uL (0.00-0.10); BASOPHILS PERCENT AUTO 0.6 % (0.0-1.0); EOSINOPHILS ABSOLUTE AUTO 0.23 10^3/uL (0.10-0.30); EOSINOPHILS PERCENT AUTO 2.9 % (1.0-3.0); IMMATURE GRAN ABSOLUTE AUTO 0.03 10^3/uL (0.00-0.04); IMMATURE GRAN PERCENT AUTO 0.4 % (0.0-0.4); LYMPHOCYTES ABSOLUTE AUTO 1.40 10^3/uL (1.00-4.00); LYMPHOCYTES PERCENT AUTO 17.9 % (20.0-40.0); MEAN PLATELET VOLUME 9.3 fL (7.4-10.4); MONOCYTES ABSOLUTE AUTO 1.13 10^3/uL (0.10-0.80); MONOCYTES PERCENT AUTO 14.5 % (2.0-8.0); NEUTROPHILS ABSOLUTE AUTO 4.98 10^3/uL (2.50-7.00); NEUTROPHILS PERCENT AUTO 63.7 % (50.0-70.0); PLATELET COUNT,PLT 274 10^3/uL (150-400); RED BLOOD CELL COUNT 4.65 10^6/uL (3.80-5.50); RED CELL DISTRIBUTION WIDTH 12.1 % (11.5-14.5); WHITE BLOOD CELL COUNT,WBC 7.82 10^3/uL (5.00-10.00)
[2024-11-04 23:24] LABS: APPEARANCE,URINE CLEAR (CLEAR); GLUCOSE,URINE NEGATIVE (NEGATIVE); OCCULT BLOOD,URINE TRACE-INTACT (NEGATIVE)
[2024-11-04 23:32] LABS: ALANINE AMINOTRANSFERASE,ALT 28.0 U/L (14-63); ASPARTATE AMNIOTRANSFERASE,AST 24.0 U/L (15-37); BILIRUBIN TOTAL 1.2 mg/dL (0.2-1.0); BLOOD UREA NITROGEN,BUN 21.0 mg/dL (7-18); CARBON DIOXIDE,CO2 28.5 mmol/L (21.0-32.0); CHLORIDE,CL 106.0 mmol/L (98-107); CREATININE 0.99 mg/dL (0.51-1.17); EST CRCL DRUG DOSING (CG) 33.63 mL/min; ESTIMATED GFR 57.0 mL/min (>=60); GLUCOSE RANDOM 97.0 mg/dL (70-140); POTASSIUM,K 4.1 mmol/L (3.5-5.1); PROTEIN TOTAL,TP 6.6 g/dL (6.4-8.2); SODIUM,NA 143.0 mmol/L (136-145)
[2024-11-04 23:42] LABS: EPITHELIAL CELLS,URINE FEW /LPF; OTHER CRYSTALS,URINE NOT SEEN /HPF
[2024-11-04 23:51] LABS: INR 0.9 (0.9-1.1)
== END 2024-11-05 01:30 | disposition home or self-care (01) ==
LOC: KA.ED 22:53
DX: G40.909 Epilepsy, unspecified, not intractable, without status epilepticus (principal); D32.0 Benign neoplasm of cerebral meninges; I12.9 Hypertensive chronic kidney disease with stage 1 through stage 4 chronic kidney disease, or unspecified chronic kidney disease; N17.9 Acute kidney failure, unspecified; N18.31 Chronic kidney disease, stage 3a; Z79.899 Other long term (current) drug therapy; Z88.8 Allergy status to other drugs, medicaments and biological substances; Z79.82 Long term (current) use of aspirin; Z86.73 Personal history of transient ischemic attack (TIA), and cerebral infarction without residual deficits
CPT/HCPCS: 36415; 70450; 71045; 80053; 81001; 84484; 85025; 85610; 85730; 86140; 99285